=== PATIENT | male | born 1970 | race Caucasian/White ===

== ENCOUNTER 2018-11-23 11:09 | Emergency (ER) | payer SELFPAY ==
[2018-11-23] MEDS: KETOROLAC 30 MG INJ IV (14:54)
[2018-11-23] MEDS: SOD CHLORIDE 0.9% 1,000 ML IV (14:55)
[2018-11-23] MEDS: TAMSULOSIN (SR) 0.4 MG CAP PO (16:06)
[2018-11-23] MEDS: CEFTRIAXONE 1 GM/50 ML (PMX) 50 ML IVPB (16:06)
== END 2018-11-23 16:23 | disposition home or self-care (01) ==
LOC: FTE 16:23
DX: N20.0 Calculus of kidney (principal); N39.0 Urinary tract infection, site not specified
CPT/HCPCS: 36415; 74176; 80053; 81001; 83690; 85025; 87086; 96374; 96375; 99285-25